=== PATIENT | female | born 1975 | race Two or more races ===

== ENCOUNTER 2016-10-08 07:59 | Day surgery (SDC) | payer OTHER ==
[~2016-10-08] VITALS: Ht 167.6 cm; Wt 129.5 kg
[2016-10-08] MEDS ORDERED: ADVIL (09:01)
[2016-10-08 09:03] VITALS: Ht 167.6 cm; Wt 129.5 kg
[2016-10-08 09:19] VITALS: BP 121/75; PULSE 77; RESP 18
[2016-10-08] MEDS ORDERED: PROPOFOL 60 ML ONE (09:47)
[2016-10-08 10:35] VITALS: BP 142/83; RESP 20
--- NOTE | 2016-10-08 23:08 | GILP ---
DATE OF PROCEDURE: PROCEDURE: Colonoscopy. PREOPERATIVE DIAGNOSIS: The patient presenting with history of persistent left lower quadrant pain. The patient's father had colon cancer. Procedure performed to rule out diverticulitis, inflammato ry bowel disease, colorectal neoplasm. POSTPROCEDURE DIAGNOSIS: Moderate degree of internal, moderate degree of external hemorrhoids. No colitis. Biopsy was done from the ileum to rule out ileitis. DESCRIPTION OF PROCEDURE: After the informed written consent was obtained, the patient was asked to lie on the left lateral side. Intravenous anesthesia was given by anesthesiologist, ____. Whe n the patient became somnolent, Olympus video colonoscope was introduced into the rectum, and scope was advanced all the way to the cecum. Entire colon appeared perfectly normal. Terminal ileum was examined which showed evidence of superficial nodularity. This could very well be lymphoid follicle s. Biopsies were obtained to rule out ileitis. Scope at this time was withdrawn from the cecum. O n the way out, further careful evaluation was carried out. No polyps noted. Scope at this time was withdrawn, and procedure was terminated. PLAN: Recommend further workup as indicated. Dictated By: SHANTELL PAUL/UMANG Conf#: [id number] DID#: [id number]
== END 2016-10-08 13:35 | disposition home or self-care (01) ==
LOC: GIL 07:59
PROVIDERS: ATTEND Internal Medicine Gastroenterology
DX: Z12.11 Encounter for screening for malignant neoplasm of colon (principal); K64.4 Residual hemorrhoidal skin tags; K64.8 Other hemorrhoids; E66.9 Obesity, unspecified; Z68.42 Body mass index [BMI] 45.0-49.9, adult
CPT/HCPCS: 45380; 84703; 88305; Z7610